=== PATIENT | male | born 1955 | race Caucasian/White ===

== ENCOUNTER 2017-01-15 05:38 | Inpatient (IN) | payer BC ==
[~2017-01-15 05:38] MED LIST: BYSTOLIC5 M1 PO; CALCIUM 600-VI1 EACH PO; FLONASE ALLERG9.9 ML; LIPITOR10 M1 PO; MULTIVITAMINS1 EAC6 PO; TYLENOL ARTHRI650 M1 PO
[2017-01-15 18:01] LABS: HCT-HEMATOCRIT 25.9 % (36.0-53.5); HGB-HEMOGLOBIN 8.4 gm/dl (13.5-17.0); MCV (MEAN CELL VOLUME) 84.1 fl (82.0-96.0); RED CELL DISTRIBUTION WIDTH 16.8 % (12.4-16.4)
[2017-01-16 06:43] LABS: BASO % 0.1 % (0-2); HCT-HEMATOCRIT 26.1 % (36.0-53.5); HGB-HEMOGLOBIN 8.4 gm/dl (13.5-17.0); IMMATURE GRANULOCYTES ABSOLUTE 0.04 tho/cmm (0-0.03); IMMATURE GRANULOCYTES PERCENT 0.3 % (0-0.3); LYMPH ABSOLUTE COUNT 1.3 tho/cmm (0.8-4.5); MCH (MEAN CORPUSCULAR HGB) 27.3 pg (28.0-32.0); MCHC MEAN CORPUSCULAR HGB CONC 32.2 % (32.0-36.0); MCV (MEAN CELL VOLUME) 84.7 fl (82.0-96.0); MEAN PLATELET VOLUME 9.6 cmc (9.4-12.4); MONO % 13.7 % (0-12); MONOCYTE ABSOLUTE COUNT 1.8 tho/cmm (0.0-1.2); NEUTROPHIL ABSOLUTE COUNT 9.8 tho/cmm (1.6-8.0); NEUTROPHIL-AUTOMATED 9.8 tho/cmm (1.6-8.0); NEUTROPHILS % 75.9 % (40-80); PLATELET COUNT 222 tho/cmm (150-450); RED BLOOD COUNT 3.08 mil/cmm (4.40-5.70)
[2017-01-16 07:02] LABS: ANION GAP 15 mmol/L (0-20); BLOOD UREA NITROGEN 25 mg/dl (6-24); CALCIUM 7.7 mg/dl (8.5-10.5); CARBON DIOXIDE-VENOUS 24 mmol/L (22-32); CHLORIDE 111 mmol/l (96-110); CREATININE 1.48 mg/dl (0.60-1.30); GLUCOSE 168 mg/dL (70-110); POTASSIUM 4.6 mmol/L (3.7-5.1); SODIUM 145 mmol/L (135-145); eGFR VALUE FOR BLACK 58 mL/Min
[2017-01-16 07:19] LABS: CREATINE PHOSPHOKINASE (CPK) 2231 U/L (35-232)
[2017-01-16 18:39] LABS: BASO % 0.1 % (0-2); HGB-HEMOGLOBIN 7.6 gm/dl (13.5-17.0); IMMATURE GRANULOCYTES ABSOLUTE 0.08 tho/cmm (0-0.03); IMMATURE GRANULOCYTES PERCENT 0.5 % (0-0.3); LYMPH % 8.9 % (20-45); LYMPH ABSOLUTE COUNT 1.6 tho/cmm (0.8-4.5); MCH (MEAN CORPUSCULAR HGB) 27.3 pg (28.0-32.0); MCHC MEAN CORPUSCULAR HGB CONC 32.9 % (32.0-36.0); MCV (MEAN CELL VOLUME) 83.1 fl (82.0-96.0); MEAN PLATELET VOLUME 9.1 cmc (9.4-12.4); MONO % 16.3 % (0-12); MONOCYTE ABSOLUTE COUNT 2.8 tho/cmm (0.0-1.2); NEUTROPHIL ABSOLUTE COUNT 12.9 tho/cmm (1.6-8.0); NEUTROPHIL-AUTOMATED 12.9 tho/cmm (1.6-8.0); NEUTROPHILS % 74.2 % (40-80); PLATELET COUNT 215 tho/cmm (150-450); RED BLOOD COUNT 2.78 mil/cmm (4.40-5.70); WHITE BLOOD COUNT 17.4 tho/cmm (4.0-10.0)
[2017-01-16 18:41] LABS: HCT-HEMATOCRIT 23.1 % (36.0-53.5)
[2017-01-16 18:56] LABS: ANION GAP 13 mmol/L (0-20); BLOOD UREA NITROGEN 28 mg/dl (6-24); CALCIUM 7.9 mg/dl (8.5-10.5); CARBON DIOXIDE-VENOUS 25 mmol/L (22-32); CHLORIDE 103 mmol/l (96-110); CREATININE 1.18 mg/dl (0.60-1.30); GLUCOSE 133 mg/dL (70-110); SODIUM 137 mmol/L (135-145); eGFR VALUE FOR BLACK 76 mL/Min
[2017-01-16 18:59] LABS: CKMB 35.4 ng/ml (<3.6)
[2017-01-17 15:45] LABS: BASO % 0.1 % (0-2); EOS % 0.1 % (0-7); HGB-HEMOGLOBIN 6.7 gm/dl (13.5-17.0); IMMATURE GRANULOCYTES ABSOLUTE 0.08 tho/cmm (0-0.03); IMMATURE GRANULOCYTES PERCENT 0.5 % (0-0.3); LYMPH % 9.8 % (20-45); LYMPH ABSOLUTE COUNT 1.6 tho/cmm (0.8-4.5); MCH (MEAN CORPUSCULAR HGB) 27.7 pg (28.0-32.0); MCV (MEAN CELL VOLUME) 83.1 fl (82.0-96.0); MEAN PLATELET VOLUME 9.4 cmc (9.4-12.4); MONOCYTE ABSOLUTE COUNT 2.8 tho/cmm (0.0-1.2); NEUTROPHIL ABSOLUTE COUNT 11.8 tho/cmm (1.6-8.0); NEUTROPHIL-AUTOMATED 11.8 tho/cmm (1.6-8.0); NEUTROPHILS % 72.5 % (40-80); PLATELET COUNT 206 tho/cmm (150-450); RED BLOOD COUNT 2.42 mil/cmm (4.40-5.70); RED CELL DISTRIBUTION WIDTH 17.6 % (12.4-16.4); WHITE BLOOD COUNT 16.2 tho/cmm (4.0-10.0)
[2017-01-17 15:47] LABS: HCT-HEMATOCRIT 20.1 % (36.0-53.5); MCHC MEAN CORPUSCULAR HGB CONC 33.3 % (32.0-36.0)
[2017-01-17 16:06] LABS: ALBUMIN 2.5 g/dl (3.5-5.0); ANION GAP 9 mmol/L (0-20); BLOOD UREA NITROGEN 23 mg/dl (6-24); CALCIUM 8.1 mg/dl (8.5-10.5); CARBON DIOXIDE-VENOUS 28 mmol/L (22-32); CHLORIDE 109 mmol/l (96-110); CREATININE 1.01 mg/dl (0.60-1.30); GLUCOSE 111 mg/dL (70-110); PHOSPHOROUS 1.9 mg/dl (2.5-4.9); POTASSIUM 4.1 mmol/L (3.7-5.1); SODIUM 142 mmol/L (135-145); eGFR VALUE FOR BLACK >90 mL/Min
[2017-01-17 16:15] LABS: CREATINE PHOSPHOKINASE (CPK) 2278 U/L (35-232)
[2017-01-20] MEDS ORDERED: ROBAXIN-750750 M1 PO (13:32)
[2017-01-20] MEDS ORDERED: NORCO 5-325 TA1 EACH PO (14:16)
[2017-01-20] MEDS ORDERED: SENOKOT-S TABL1 EACH PO (14:18)
[2017-01-20] MEDS ORDERED: TYLENOL325 M2 PO (14:19)
== END 2017-01-20 15:15 | DRG 454 ==
LOC: SHSC 05:38 → ORE 08:47 → PACU 17:24 → 5EB 19:25
PROVIDERS: Anesthesiology; ADMIT Neurological Surgery
PROC: 0SG10A0 Fusion of 2 or more Lumbar Vertebral Joints with Interbody Fusion Device, Anterior Approach, Anterior Column, Open Approach (ICD-10-PCS; principal; 2017-01-15)
PROC: 0SG00AJ Fusion of Lumbar Vertebral Joint with Interbody Fusion Device, Posterior Approach, Anterior Column, Open Approach (ICD-10-PCS; 2017-01-15)
PROC: 0SG1071 Fusion of 2 or more Lumbar Vertebral Joints with Autologous Tissue Substitute, Posterior Approach, Posterior Column, Open Approach (ICD-10-PCS; 2017-01-15)
PROC: 07DR3ZZ Extraction of Iliac Bone Marrow, Percutaneous Approach (ICD-10-PCS; 2017-01-15)
PROC: 0SB20ZZ Excision of Lumbar Vertebral Disc, Open Approach (ICD-10-PCS; 2017-01-15)
PROC: 8E0WXBF Computer Assisted Procedure of Trunk Region, With Fluoroscopy (ICD-10-PCS; 2017-01-15)
PROC: 30233N1 Transfusion of Nonautologous Red Blood Cells into Peripheral Vein, Percutaneous Approach (ICD-10-PCS; 2017-01-17)
DX: M48.06 Spinal stenosis, lumbar region (principal); D62 Acute posthemorrhagic anemia; I10 Essential (primary) hypertension; M41.9 Scoliosis, unspecified; M54.16 Radiculopathy, lumbar region; E78.5 Hyperlipidemia, unspecified; M43.16 Spondylolisthesis, lumbar region
CPT/HCPCS: C1713; J0690; J1170; J2250; J2800; J3010; J3370; J7030; J7040; P9016